=== PATIENT | female | born 1990 | race Caucasian/White ===

== ENCOUNTER 2019-11-08 15:19 | Emergency (ER) | payer BC, MEDICAID ==
[2019-11-08] MEDS ORDERED: Lidocaine 1% 20 ML MDV ONE (15:58)
--- NOTE | 2019-11-08 16:21 | RAD ---
Exam: XR Hand Lt 3 View STANDARD HISTORY: Left hand deformity. COMPARISON: None FINDINGS: There is dislocation involving the metacarpal phalangeal joint of the thumb with the proximal phalanx dislocated laterally. Accessory centers of ossification are seen at this level, but there is question of an additional osseous density, and an avulsion injury cannot be entirely excluded. Follow -up evaluation is recommended after reduction in the dislocation of the thumb. No additional fracture or dislocation is seen. IMPRESSION: Dislocation metacarpal phalangeal joint of the thumb. Reimaging after reduction of the dislocation is recommended.
--- NOTE | 2019-11-08 16:43 | RAD ---
XR Finger(s) Lt Min 2 View History: Post reduction Comparison: Radiograph same day Findings: Improved alignment of the thumb metacarpal phalangeal joint is likely injury of the lateral sesamoid. Impression: Improved post reduction alignment.
== END 2019-11-08 17:10 | disposition home or self-care (01) ==
LOC: MADERS 15:19
DX: S63.115A Dislocation of metacarpophalangeal joint of left thumb, initial encounter (principal); W22.8XXA Striking against or struck by other objects, initial encounter; Y93.66 Activity, soccer
CPT/HCPCS: 26770; J2001